=== PATIENT | male | born 1970 | race Two or more races ===

== ENCOUNTER → 2023-02-07 | Day surgery (SDC) | payer BC ==
[2023-02-02 16:29] VITALS: BMI 32.3
[2023-02-07 08:19] VITALS: TEMP 98.2
[2023-02-07 09:05] VITALS: BP 124/76; PULSE 56; RESP 16
== END | disposition home or self-care (01) ==
LOC: JASU-ENDO 05:19
PROVIDERS: ATTEND Internal Medicine Gastroenterology
PROC: 0DJD8ZZ Inspection of Lower Intestinal Tract, Via Natural or Artificial Opening Endoscopic (ICD-10-PCS; principal; 2023-02-07 08:00)
DX: Z12.11 Encounter for screening for malignant neoplasm of colon (principal); K64.8 Other hemorrhoids; K57.30 Diverticulosis of large intestine without perforation or abscess without bleeding; K62.89 Other specified diseases of anus and rectum

== ENCOUNTER 2023-05-24 12:57 | Emergency (ER) | payer BC ==
[2023-05-24 13:08] VITALS: BP 127/77; PULSE 57; RESP 16; TEMP 98.2; BMI 32.5
[2023-05-24] MEDS ORDERED: LIDOCAINE 5% TOPICAL PATCH TP ONE (14:04)
[2023-05-24] MEDS ORDERED: diazePAM 5 MG TABLET PO ONE (14:05)
[2023-05-24] MEDS ORDERED: KETOROLAC TROMETHAMINE 60 MG/2 ML VIAL IM ONE (14:05)
[2023-05-24] MEDS ORDERED: LIDOCAINE 5% TOPICAL PATCH ONE (14:08)
[2023-05-24] MEDS ORDERED: diazePAM 5 MG TABLET ONE (14:08)
[2023-05-24] MEDS ORDERED: KETOROLAC TROMETHAMINE 60 MG/2 ML VIAL ONE (14:08)
[2023-05-24 14:48] LABS: PHENCYCLIDINE,URINE NEGATIVE (NEGATIVE)
[2023-05-24 14:49] LABS: URINE BARBITURATES NEGATIVE (NEGATIVE)
[2023-05-24 14:50] LABS: COCAINE, UR NEGATIVE (NEGATIVE); METHADONE, UR NEGATIVE (NEGATIVE); OPIATES, URI NEGATIVE (NEGATIVE); URINE AMPHETAMINES NEGATIVE (NEGATIVE); URINE BENZODIAZEPINES NEGATIVE (NEGATIVE)
[2023-05-24] MEDS ORDERED: LIDOCAINE PATCH REMOVAL MC ONE (22:00)
== END 2023-05-24 14:59 | disposition home or self-care (01) ==
LOC: JERFT 12:57 → JER 12:57 → JERFT 14:59
PROC: 3E0233Z Introduction of Anti-inflammatory into Muscle, Percutaneous Approach (ICD-10-PCS; principal; 2023-05-24)
DX: M54.50 Low back pain, unspecified (principal); X50.1XXA Overexertion from prolonged static or awkward postures, initial encounter; Y93.F2 Activity, caregiving, lifting; Y92.69 Other specified industrial and construction area as the place of occurrence of the external cause; Y99.0 Civilian activity done for income or pay
CPT/HCPCS: 80307; 99284-25

== ENCOUNTER 2024-06-17 21:00 | Emergency (ER) | payer BC ==
[2024-06-17 21:06] VITALS: BP 112/74; PULSE 71; RESP 18; TEMP 98.5; BMI 31.6
[2024-06-17] MEDS ORDERED: AMOX TR/POT CLAV 875MG/125MG TABLETS (FP) PO ONE (21:15)
[2024-06-17] MEDS ORDERED: ACETAMINOPHEN 325 MG TABLET (FP) ONE (21:19)
[2024-06-17] MEDS: AMOX TR/POT CLAV 875MG/125MG TABLETS (FP) PO ONE (21:19)
[2024-06-17] MEDS: ACETAMINOPHEN 325 MG TABLET (FP) PO ONE (21:19)
[2024-06-17] MEDS ORDERED: AMOX TR/POT CLAV 875MG/125MG TABLETS (FP) ONE (21:19)
[2024-06-17] MEDS: TETANUS AND DIPHTHERIA TOXOID 0.5 ML DISP.SYRIN IM ONE (21:24)
[2024-06-17] MEDS ORDERED: DIPHTH,PERTUSS(ACELL),TET 0.5 ML DISP.SYRIN IM ONE (21:37)
== END 2024-06-17 21:57 | disposition home or self-care (01) ==
LOC: JERFT 21:00
PROC: 3E0234Z Introduction of Serum, Toxoid and Vaccine into Muscle, Percutaneous Approach (ICD-10-PCS; principal; 2024-06-17)
DX: S61.102A Unspecified open wound of left thumb with damage to nail, initial encounter (principal); Z23 Encounter for immunization; W31.1XXA Contact with metalworking machines, initial encounter
CPT/HCPCS: 73140-TC-LT-FY; 99284-25